=== PATIENT | male | born 1995 | race Caucasian/White ===

== ENCOUNTER 2017-04-26 19:07 | Emergency (ER) | payer OTHER ==
[~2017-04-26] VITALS: Ht 188 cm; Wt 65.8 kg
[2017-04-26] MEDS ORDERED: KEFLEX500 M1 PO (20:26)
[2017-04-26] MEDS ORDERED: TRAMADOL 50 MG50 MG PO (20:26)
[2017-04-26] MEDS ORDERED: IBUPROFEN 600600 M1 PO (20:26)
[2017-04-26 20:53] VITALS: BP 129/88
== END 2017-04-26 20:54 | disposition home or self-care (01) ==
LOC: M.ERS 19:07
DX: L02.31 Cutaneous abscess of buttock (principal)